=== PATIENT | female | born 1980 | race Caucasian/White ===

== ENCOUNTER 2017-10-17 06:20 | Day surgery (SDC) | payer OTHER ==
[~2017-10-17 06:20] MED LIST: KETO10TA2 PO; PANADOL EXTRA500 MG PO; TRAMADOL HCL50 MG PO
== END 2017-10-17 15:15 | disposition home or self-care (01) ==
LOC: CIR.AMB 06:20
DX: N20.0 Calculus of kidney (principal)

== ENCOUNTER 2020-02-02 11:02 | Emergency (ER) | payer OTHER ==
[~2020-02-02] VITALS: Ht 165.1 cm; Wt 59.0 kg
[2020-02-04] MEDS ORDERED: SEPTRA PO (12:37)
== END 2020-02-02 14:16 | disposition home or self-care (01) ==
LOC: ER 11:02
DX: N20.0 Calculus of kidney (principal); Z03.818 Encounter for observation for suspected exposure to other biological agents ruled out

== ENCOUNTER 2020-02-14 07:23 | Day surgery (SDC) | payer OTHER ==
[~2020-02-14 07:23] MED LIST changes: +SEPTRA PO
== END 2020-02-14 16:15 | disposition home or self-care (01) ==
LOC: CIR.AMB 07:23
PROVIDERS: ATTEND Urology
DX: N20.0 Calculus of kidney (principal); N20.1 Calculus of ureter; Z20.828 Contact with and (suspected) exposure to other viral communicable diseases

== ENCOUNTER 2020-10-16 06:45 | Day surgery (SDC) | payer OTHER | END 2020-10-16 14:05 | disposition home or self-care (01) | LOC: CIR.AMB 06:45 | PROVIDERS: ATTEND Urology | DX: N20.0 Calculus of kidney (principal); Z20.822 Contact with and (suspected) exposure to COVID-19 ==

== ENCOUNTER 2020-10-30 11:23 | Outpatient (CLI) | payer OTHER | END 2020-10-30 11:35 | disposition home or self-care (01) | LOC: RAD 11:23 | PROVIDERS: ATTEND Urology | DX: N20.1 Calculus of ureter (principal) ==